=== PATIENT | female | born 1985 | race Caucasian/White ===

== ENCOUNTER 2018-10-19 14:57 | Outpatient (REF) | payer OTHER, SELFPAY ==
--- NOTE | 2018-10-19 14:30 | PAPFT_PTH ---
PATIENT: Alyse Melendez LOC: N U#:[id number] AGE/SX: 33/F ROOM: RE10/19/[address]: LORENA Reardon : 1985 BED: DIS: 10/19/2018 SPEC #: [id number] RECD: 10/19/18 17:57 STATUS: ABDIAZIZ REJoanie #: [id number] OZZY: 10/19/18 14:[address]: Richa Bishop DEPT: [facility] Cytology RECD BY: Rosa Gastelum ENTERED: 10/19/18 17:57 SP TYPE: PAPFT OTHR DR: Gifty [place] Tissues: 1 - CX/ENDOCX FOR PAP SMEARS Procedures: PAP THIN PREP/[facility] Screening HPV DNA PROBE Comments: [id number]
== END 2018-10-19 15:17 ==
LOC: LBN 14:57
PROVIDERS: PCP Nurse Practitioner Family; Visit Provider Nurse Practitioner Family
DX: Z12.4 Encounter for screening for malignant neoplasm of cervix (principal); Z11.51 Encounter for screening for human papillomavirus (HPV)
CPT/HCPCS: 88142; 87624

== ENCOUNTER 2021-05-20 09:33 | Outpatient (REF) | payer MEDICAID, SELFPAY ==
[2021-05-20 14:25] LABS: Anion Gap 9.6 mmol/L (3-11); BUN 10 mg/dL (7-18); CO2 27.4 mmol/L (21.0-32.0); CREATININE 0.8 mg/dL (0.55-1.02); Calcium 9.2 mg/dL (8.5-10.1); Chloride 105 mmol/L (98-107); Glucose 114 mg/dL (74-106); Potassium 4.1 mmol/L (3.5-5.1); Sodium 142 mmol/L (136-145)
== END 2021-05-20 09:34 | disposition home or self-care (01) ==
LOC: NCHCN 09:33
PROVIDERS: PCP Nurse Practitioner Family; Visit Provider Nurse Practitioner Community Health
DX: E87.6 Hypokalemia (principal)
CPT/HCPCS: 80048

== ENCOUNTER 2021-08-09 10:59 | Outpatient (REF) | payer BC, MEDICAID, SELFPAY ==
[2021-08-09 14:11] LABS: Absolute Basophil Count 0.06 10^3/uL (0.0-0.2); Absolute Eosinophil Count 0.09 10^3/uL (0.0-0.7); Absolute Lymphocyte Count 1.88 10^3/uL (1.2-3.4); Absolute Monocyte Count 0.42 10^3/uL (0.1-0.8); Absolute Neutrophil Count 2.69 10^3/uL (1.2-6.7); Basophils % 1.2; Eosinophils % 1.8; HCT 44.1 % (36.0-46.0); HGB 14.6 g/dL (11.2-15.7); Lymphocytes % 36.6; MCH 29.7 pg (27.0-33.0); MCHC 33.1 % (32.0-36.0); MCV 89.6 fL (80-95); Monocytes % 8.2; Neutrophils % 52.2; Nucleated RBC 0 %; Platelet Count 238 10^3/uL (130-400); RBC 4.92 10^6/uL (3.93-5.22); RDW 11.9 % (11.7-14.6); RDW-SD 39.2 fL; WBC 5.14 10^3/uL (4.4-10.8)
[2021-08-09 14:14] LABS: ESR 3 mm/hr (0-20)
[2021-08-09 14:35] LABS: C-Reactive Protein 0.06 mg/dL (0.0-0.3); TSH (W/Ref FT4) 0.81 uIU/mL (0.36-3.74)
== END 2021-08-09 11:00 | disposition home or self-care (01) ==
LOC: NCHCN 10:59
PROVIDERS: PCP Nurse Practitioner Family; Visit Provider Family Medicine
DX: R19.4 Change in bowel habit (principal); R10.12 Left upper quadrant pain
CPT/HCPCS: 85652; 84443; 85025; 86140

== ENCOUNTER 2022-01-24 11:35 | Outpatient (REF) | payer BC, MEDICAID, SELFPAY ==
--- NOTE | 2022-01-24 10:15 | PAPFT_PTH ---
PATIENT: Alyse Melendez LOC: [facility] U#:[id number] AGE/SX: 36/F ROOM: RE01/24/[address]: LORENA Reardon : 1985 BED: DIS: 01/24/2022 SPEC #: [id number] RECD: 01/24/22 13:02 STATUS: ABDIAZIZ REJoanie #: [id number] OZZY: 01/24/22 10:[address]: Richa Bishop DEPT: [facility] Cytology RECD BY: Rosa Gastelum ENTERED: 01/24/22 13:03 SP TYPE: PAPFT OTHR DR: Gifty [place] Sarah E Tissues: 1 - CX/ENDOCX FOR PAP SMEARS Procedures: PAP THIN PREP/[facility] Screening HPV DNA PROBE Comments: [id number]
== END 2022-01-24 11:36 | disposition home or self-care (01) ==
LOC: LBN 11:35
PROVIDERS: PCP Nurse Practitioner Family; Visit Provider Nurse Practitioner Family
DX: Z11.51 Encounter for screening for human papillomavirus (HPV) (principal); Z12.4 Encounter for screening for malignant neoplasm of cervix
CPT/HCPCS: 88142; 87624